=== PATIENT | female | born 1955 | race American Indian/Alaskan Native ===

== ENCOUNTER 2017-05-24 08:50 | Emergency (ER) | payer SELFPAY ==
[2017-05-24] MEDS ORDERED: PROVENTIL IH ONE (09:17)
[2017-05-24] MEDS ORDERED: ATROVENT IH ONE (09:18)
[2017-05-24 09:23] LABS: Basophils % (Auto) 0.8 % (0.0-1.8); Eosinophils % (Auto) 6.6 % (0.0-4.3); Hematocrit 46.2 % (30.3-42.9); Hemoglobin 14.9 gm/dl (10.1-14.3); Mean Corpuscular HGB Conc 32 % (30-34); Mean Corpuscular Hemoglobin 28 pg (28-32); Mean Corpuscular Volume 88 fl (79-97); Platelet Count 242 K/mm3 (140-440); Red Blood Count 5.26 M/mm3 (3.65-5.03); Red Cell Distribution Width 14.9 % (13.2-15.2); White Blood Count 8.3 K/mm3 (4.5-11.0)
[2017-05-24] MEDS ORDERED: MAGNESIUM SULFATE 2GM/50ML 2 GM/50 ML BAG IV ONE ×2 (09:30→09:39)
[2017-05-24 09:37] LABS: BUN/Creatinine Ratio 21.25; Blood Urea Nitrogen 17 mg/dL (7-17); Calcium 9.1 mg/dL (8.4-10.2); Carbon Dioxide 26 mmol/L (22-30); Chloride 103.6 mmol/L (98-107); Glucose 101 mg/dL (65-100); Sodium 143 mmol/L (137-145)
[2017-05-24] MEDS ORDERED: NORMODYNE IV ONE ×2 (09:39→11:06)
--- NOTE | 2017-05-24 09:42 | Emergency Department Report ---
HPI - General Chief Complaint: Chest Pain Time Seen by Provider: 05/24/17 09:38 - HPI HPI: This is a 61-year-old Afro-[place] female presents to the emergency department with complaint of shortness of breath, wheezing, dry cough, chest tightness has been going on since about 6:30 AM this morning. The patient does not have any nebulized breathing machine or albuterol inhaler here as her medications are back in [place]. The discomfort in her chest is considered to be an intensity of 8 out of 10. She has a past medical history of COPD but is not oxygen dependent. She also has a history of hypertension, "irregular heart rate", bronchitis, arthritis. She is a tobacco smoker but denies any illicit drug use. No sick contacts at home. Her primary care physician is a Dr. Grossman at the [facility]. ED Past Medical Hx - Past Medical History Previous Medical History?: Yes Hx Hypertension: Yes Hx Arthritis: Yes Hx COPD: Yes Additional medical history: Bronchitits - Surgical History Past Surgical History?: No - Social History Smoking Status: Current Every Day Smoker - Medications Home Medications: Home Medications Medication Instructions Recorded Confirmed Last Taken Type ALBUTEROL Inhaler [ProAir HFA 2 puff IH QID PRN #1 inhalation 05/24/17 Unknown Rx Inhaler] ALBUTEROL NEB's [Proventil 0.083% 2.5 mg IH TID PRN #1 box 05/24/17 Unknown Rx NEBS] predniSONE [Deltasone] 20 mg PO QDAY #5 tab 05/24/17 Unknown Rx ED Review of Systems ROS: Stated complaint: CHEST PAIN/COPD/SOB Other details as noted in HPI Comment: All other systems reviewed and negative Constitutional: denies: chills, fever Eyes: denies: eye pain, eye discharge, vision change ENT: denies: ear pain, throat pain Respiratory: cough, shortness of breath, wheezing Cardiovascular: chest pain. denies: palpitations, edema Gastrointestinal: denies: abdominal pain, nausea, diarrhea Genitourinary: denies: urgency, dysuria, discharge Musculoskeletal: denies: back pain, joint swelling, arthralgia Skin: denies: rash, lesions Neurological: denies: headache, weakness, paresthesias Physical Exam - Physical Exam Vital Signs: Vital Signs 05/24/17 05/24/17 05/24/17 08:56 09:22 09:30 Pulse Rate 80 Pulse Rate [ 75 78 Bilateral Upper Lobe] Respiratory 20 Rate Respiratory 20 18 Rate [Bilateral Upper Lobe] Blood Pressure 221/107 O2 Sat by Pulse 97 Oximetry Physical Exam: GENERAL: The patient is well-developed well-nourished. HEENT: Normocephalic. Atraumatic. Extraocular motions are intact. Patient has moist mucous membranes. Pupils equal reactive to light bilaterally. NECK: Supple. Trachea is midline. CHEST/LUNGS: Mild to moderate wheezing throughout the chest. There is mild tachypnea but no accessory muscle use. There is no respiratory distress noted. HEART/CARDIOVASCULAR: Regular. There is no tachycardia. There is no gallop rub or murmur. ABDOMEN: Abdomen is soft, nontender. Patient has normal bowel sounds. There is no abdominal distention. SKIN: Skin is warm and dry. NEURO: The patient is awake, alert, and oriented. The patient is cooperative. The patient has no focal neurologic deficits. The patient has normal speech. MUSCULOSKELETAL: There is no tenderness or deformity. There is no limitation range of motion. There is no evidence of acute injury. ED Course Vital Signs 05/24/17 05/24/17 05/24/17 08:56 09:22 09:30 Pulse Rate 80 Pulse Rate [ 75 78 Bilateral Upper Lobe] Respiratory 20 Rate Respiratory 20 18 Rate [Bilateral Upper Lobe] Blood Pressure 221/107 O2 Sat by Pulse 97 Oximetry ED Medical Decision Making - Lab Data Result diagrams: 05/24/17 09:06 05/24/17 09:06 - EKG Data -: EKG Interpreted by [place] EKG shows normal: sinus rhythm, axis, intervals, QRS complexes (LVH), ST-T waves (T-wave inversions to the lateral leads) Rate: normal - EKG Data When compared to previous EKG there are: previous EKG unavailable Interpretation: other (sinus rhythm, biatrial enlargement, LVH, T-wave inversion to the lateral leads) - Radiology Data Radiology results: image reviewed interpreted by me: Chest x-ray shows some hyperinflation of the lungs and flattening of the diaphragms but no obvious pneumonia, pleural effusion and no pneumothorax. - Medical Decision Making 61-year-old female presents to the emergency department with some shortness of breath, wheezing and chest tightness since this morning. Patient feels that it is most consistent with COPD. She does have some bronchospasm on physical exam. She was given Solu-Medrol, breathing treatments, magnesium. Upon reevaluation she is feeling much better. The wheezing has almost completely resolved and the patient no longer has any chest tightness or discomfort. EKG did not show any signs of ST elevation CO, or dysrhythmia. Labs show a negative troponin and a negative d-dimer. Patient is feeling greatly improved and asking for discharge home. She will be started on a five-day course of low- dose steroids, given an albuterol inhaler and refill of nebulized treatments. She's been encouraged to return to the emergency department with any worsening of her symptoms or any acute distress. - Differential Diagnosis asthma, COPD, CO, PE, pneumonia Critical Care Time: No Critical care attestation.: If time is entered above; I have spent that time in minutes in the direct care of this critically ill patient, excluding procedure time. ED Disposition Clinical Impression: COPD exacerbation Hypertension Qualifiers: Hypertension type: essential hypertension Qualified Code(s): I10 - Essential ( primary) hypertension Disposition: DC- TO HOME OR SELFCARE Is pt being admited?: No Condition: Stable Instructions: Chronic Obstructive Pulmonary Disease (ED), Hypertension (ED) Additional Instructions: Please follow-up with your primary care doctor in the next few days. Return to the emergency department with any worsening of your symptoms or any acute distress. Prescriptions: ALBUTEROL Inhaler [ProAir HFA Inhaler] 2 puff IH QID PRN #1 inhalation PRN Reason: Shortness Of Breath ALBUTEROL NEB's [Proventil 0.083% NEBS] 2.5 mg IH TID PRN #1 box PRN Reason: Wheezing predniSONE [Deltasone] 20 mg PO QDAY #5 tab Referrals: PRIMARY CARE, [Primary Care Provider] - [facility] Time of Disposition: 11:27
--- NOTE | 2017-05-24 10:19 | XRay Report ---
PORTABLE CHEST: Chest pain. An AP portable view of the chest demonstrates a normal cardiac contour considering the limits of this technique. The lungs are clear with no evidence of infiltrate, fluid or failure. IMPRESSION: Normal portable chest.
[2017-05-24 10:33] LABS: Anion Gap 18 mmol/L; Potassium 4.3 mmol/L (3.6-5.0)
[2017-05-24 11:17] VITALS: BP 156/72
== END 2017-05-24 11:37 | disposition home or self-care (01) ==
LOC: ED 08:50
DX: J44.1 Chronic obstructive pulmonary disease with (acute) exacerbation (principal); I10 Essential (primary) hypertension; M19.90 Unspecified osteoarthritis, unspecified site; J44.9 Chronic obstructive pulmonary disease, unspecified; F17.210 Nicotine dependence, cigarettes, uncomplicated
CPT/HCPCS: 36415; 71010; 80048; 83880; 84484; 85025; 85379; 93005; 93010; 94640; 96365; 96375; 99285; J2930; J3475